=== PATIENT | female | born 1980 | race Caucasian/White ===

== ENCOUNTER 2019-03-04 06:16 | Day surgery (SDC) | payer BC ==
[2019-02-28 18:21] VITALS: BMI 39.2
[~2019-03-04 06:16] MED LIST: ALPRAZolam 0.25 MG TAB PO PRN; ALPRAZolam 0.5 MG TAB PO PRN; ASPIRIN 325 MG TAB PO STA; ATORVASTATIN 80 MG TAB PO STA; HYDROmorphone 2 MG TAB PO STA; NITROGLYCERIN SL TABS 0.4 MG TAB SUBLINGUAL PRN; SODIUM CHLORIDE 0.9% 1,000 ML in EMPTY BAG 1 BAG IV ONE; hydrALAZINE HCL 20 MG/ML 1 ML VIAL IVP STA
[2019-03-04] MEDS ORDERED: IV FLUID CONTINUATION 1,000 ML IV ONE (07:21)
[2019-03-04 07:22] VITALS: TEMP 98.3
[2019-03-04] MEDS ORDERED: SODIUM CHLORIDE 0.9% 1,000 ML IV ONE (07:25)
[2019-03-04] MEDS ORDERED: MIDAZOLAM 2 MG/2 ML VIAL IV ONE (07:45)
[2019-03-04] MEDS ORDERED: LIDOCAINE 1% INJ 10MG/ML (20 ML MDV) SQ ONE (07:46)
[2019-03-04] MEDS: VERAPAMIL SYRINGE (5 MG/10 ML) INTRAARTER ONE ×2 (07:48→07:55)
[2019-03-04] MEDS ORDERED: IOPAMIDOL-370 125ML BTL INJ ONE (07:56)
[2019-03-04] MEDS ORDERED: SODIUM CHLORIDE 0.9% 1,000 ML IV SCH (08:15)
--- NOTE | 2019-03-04 08:24 | LTR ---
March 04, 2019 Re: Caroline Ann Dear Dr. Benites: Ms. Caroline Ann underwent today a heart catheterization and that revealed normal coronaries. I want to thank you for allowing me to participate in her care and please do not hesitate to call if you have any question or concern. Sincerely, MD CHERYL Mansfield / ROXANE: [phone] /
--- NOTE | 2019-03-04 08:30 | CC ---
CARDIAC CATHETERIZATION REPORT DATE OF SERVICE: March 04, 2019. PERFORMING PHYSICIAN: Demar Mcdonnell MD. PROCEDURE PERFORMED: 1. Selective right and left coronary angiogram. 2. Left heart catheterization. INDICATION: This is a 38-year-old female patient who was diagnosed recently with cardiomyopathy and uncontrolled blood pressure. Because of that, she was brought today to undergo a heart catheterization to rule out severe underlying coronary artery disease. APPROACH: Right radial artery. COMPLICATION: None. LEVEL OF SEDATION: Moderate with sedation length of 13 minutes. PROCEDURE DESCRIPTION: After obtaining an informed consent, the patient was brought to the cardiac ammunition assembly laborer. The right radial artery was cannulated using micropuncture technique under ultrasound guidance, the micropuncture wire passed easily then I placed a 5-Albanian sheath in the right radial artery. After that I gave the patient 2 mg of verapamil IA and 10,000 units of heparin IV. Selective right and left coronary angiogram achieved with JR4 and JL3.5 catheters and both are 5-Albanian. Left heart catheterization performed using 5- Albanian pigtail catheter. The procedure was completed without any complication. SELECTIVE CORONARY ANGIOGRAM: 1. The right coronary artery is a large caliber vessel and is a dominant vessel. It is angiographically normal. Distally it bifurcates into PDA and PLV branches, both appeared to be angiographically normal. 2. The left main is angiographically normal. It bifurcates into LCX and LAD. 3. The LCX is a large caliber vessel. It is a nondominant vessel. The LCX gives rise into a large OM branch which worked as ramus intermedius and appeared to be angiographically normal. In the midportion, it gives rise into a second OM branch which seems to be normal and after that continues as a moderate caliber vessel in the AV groove. 4. The LAD is a large caliber vessel. The LAD is angiographically normal. In the proximal portion, it gives rise into a diagonal branch which seems to be angiographically normal. HEMODYNAMICS: The LVEDP was 4 to 8 mmHg without significant gradient across the aortic valve. CONCLUSION: 1. Normal coronary angiogram. 2. Normal LVEDP. POSTPROCEDURE MANAGEMENT: 1. Medical treatment. 2. Follow up with the patient. MMODL / IJN: [id number] /
[2019-03-04 08:41] VITALS: RESP 16
[2019-03-04 09:53] VITALS: PULSE 79
[2019-03-04 11:17] VITALS: BP 110/55
== END 2019-03-04 11:55 | disposition home or self-care (01) ==
LOC: CATHCVL 06:16
PROVIDERS: ATTEND Internal Medicine Interventional Cardiology
DX: I42.9 Cardiomyopathy, unspecified (principal); I10 Essential (primary) hypertension; Z82.49 Family history of ischemic heart disease and other diseases of the circulatory system; Z79.899 Other long term (current) drug therapy
CPT/HCPCS: 93458; 76937; 81025; C1769 ×2; C1894; J2250; J2001; J1644; Q9967